=== PATIENT | male | born 1975 | race Two or more races ===

== ENCOUNTER 2017-11-11 11:46 | Emergency (ER) | payer OTHER ==
[~2017-11-11] VITALS: Ht 180.3 cm; Wt 104.3 kg
[~2017-11-11 11:46] MED LIST: ALBU90OI61 INH; ASPI81CH PO; CIPR500 PO; CODGUAEL PO; DEXT30SU PO; HYDACE5 PO; HYDCHL25 PO; LISI10 PO; LISI5 PO; METF500 PO; MONDOXYNE NL100 MG PO; NAPR500 PO; NEBI5 PO; NITR.4SL SL; Norco 5-325 Ta1 EACH PO; OXYACE5T PO; ROSU5 PO
[2017-11-11] MEDS ORDERED: METO25ER PO (12:35)
== END 2017-11-11 13:00 | disposition home or self-care (01) ==
LOC: ER 11:46
DX: S60.221A Contusion of right hand, initial encounter (principal); J45.909 Unspecified asthma, uncomplicated; I10 Essential (primary) hypertension; R73.03 Prediabetes; Z79.899 Other long term (current) drug therapy; Z79.84 Long term (current) use of oral hypoglycemic drugs; W01.0XXA Fall on same level from slipping, tripping and stumbling without subsequent striking against object, initial encounter; Y92.000 Kitchen of unspecified non-institutional (private) residence as the place of occurrence of the external cause
CPT/HCPCS: 73130; 99283

== ENCOUNTER 2020-04-18 15:56 | Emergency (ER) | payer OTHER ==
[~2020-04-18] VITALS: Ht 177.8 cm; Wt 103.0 kg
[~2020-04-18 15:56] MED LIST changes: +ACTOS30 MG PO; +CEPH500 PO; +CLIN300 PO; +GLIMEPIRIDE4 MG PO; +IBUP600 PO; +Inderal 20 mg T20 MG PO; +METO25ER PO; +METO50ER PO; +SULTRIDS PO; +VISBIOME PROBIOTIC PO
[2020-04-18] MEDS ORDERED: Cleocin HCl300 MG PO (16:15)
[2020-04-18] MEDS ORDERED: Norco 10-325 T1 EACH PO (16:15)
[2020-04-20] MEDS ORDERED: Bactrim Ds Tab1 EACH PO (20:58)
== END 2020-04-18 16:22 | disposition home or self-care (01) ==
LOC: ER 15:56
DX: L04.2 Acute lymphadenitis of upper limb (principal); I10 Essential (primary) hypertension; J45.909 Unspecified asthma, uncomplicated; Z79.84 Long term (current) use of oral hypoglycemic drugs; Z87.2 Personal history of diseases of the skin and subcutaneous tissue; Z79.899 Other long term (current) drug therapy
CPT/HCPCS: 99283

== ENCOUNTER → 2021-03-13 | Outpatient (CLI) | payer OTHER ==
[~2021-03-13] MED LIST changes: +Bactrim Ds Tab1 EACH PO; +Cipro500 MG PO; +Cleocin HCl300 MG PO; +FLAGYL500 M2 PO; +Norco 10-325 T1 EACH PO
[2021-03-13 14:13] LABS: BASOPHILS ABSOLUTE AUTO 0.02 K/mm3 (0.00-0.23); BASOPHILS PERCENT AUTO 0 % (0-2); EOSINOPHILS ABSOLUTE AUTO 0.05 K/mm3 (0.00-0.68); EOSINOPHILS PERCENT AUTO 1 % (0-6); Hematocrit 43.9 % (37.0-53.0); Hemoglobin 15.4 g/dL (13.5-17.5); IMMATURE GRAN ABSOLUTE AUTO 0.04 K/mm3 (0.00-0.10); IMMATURE GRAN PERCENT AUTO 1 % (0-1); LYMPHOCYTES ABSOLUTE AUTO 2.01 K/mm3 (0.84-5.20); LYMPHOCYTES PERCENT AUTO 34 % (21-46); MONOCYTES ABSOLUTE AUTO 0.51 K/mm3 (0.16-1.47); MONOCYTES PERCENT AUTO 9 % (4-13); Mean Corpuscular HGB 32.8 pg (26.0-34.0); Mean Corpuscular HGB Conc 35.1 g/dL (31.5-36.5); Mean Corpuscular Volume 94 fL (80-100); Mean Platelet Volume 8.6 fL (9.1-12.4); NEUTROPHILS ABSOLUTE AUTO 3.32 K/mm3 (1.96-9.15); NEUTROPHILS PERCENT AUTO 56 % (41-73); Platelet Count 273 K/mm3 (150-400); RDW Coefficient Variation 13.3 % (11.7-14.2); RDW Standard Deviation 45.9 fL (35.1-46.3); Red Blood Cell Count 4.69 M/mm3 (4.30-5.90); White Blood Cell Count 5.95 K/mm3 (4.00-11.30)
[2021-03-13 14:25] LABS: Alanine Aminotransfer (ALT/SGP 37 U/L (12-78); Alk Phos 70 U/L (40-126); Anion Gap 11 mmol/L (6-16); Aspartate Aminotrans (AST/SGOT 12 U/L (12-37); Bilirubin, Total 0.5 mg/dL (0.1-1.0); Blood Urea Nitrogen 11 mg/dL (8-24); CO2, Blood 26 mmol/L (21-32); Calcium, Blood 8.4 mg/dL (8.5-10.1); Chloride, Blood 99 mmol/L (98-108); Creatinine, Blood 0.92 mg/dL (0.60-1.20); Globulin, Blood 4.1 g/dL (2.2-4.0); Glomerular Filtration Rate >60 (60-); Glucose, Blood 191 mg/dL (70-99); Potassium, Blood 4.4 mmol/L (3.5-5.5); Sodium, Blood 136 mmol/L (136-145); Total Protein, Blood 8.1 g/dL (6.4-8.2)
== END | disposition home or self-care (01) ==
LOC: LAB SHORT 14:09 → LAB 14:09
PROVIDERS: General Practice
DX: R10.9 Unspecified abdominal pain (principal)
CPT/HCPCS: 80053; 85025

== ENCOUNTER 2021-08-30 16:13 | Emergency (ER) | payer OTHER ==
[~2021-08-30] VITALS: Ht 182.9 cm; Wt 90.7 kg
[2021-12-04] MEDS ORDERED: XARELTO PO (17:11)
== END 2021-08-30 16:45 | disposition home or self-care (01) ==
LOC: ER 16:13
DX: U07.1 COVID-19 (principal); I10 Essential (primary) hypertension; J45.909 Unspecified asthma, uncomplicated; R73.03 Prediabetes; Z79.84 Long term (current) use of oral hypoglycemic drugs; Z79.899 Other long term (current) drug therapy
CPT/HCPCS: 99283

== ENCOUNTER 2022-09-13 12:54 | Emergency (ER) | payer OTHER ==
[~2022-09-13] VITALS: Ht 177.8 cm; Wt 104.3 kg
[~2022-09-13 12:54] MED LIST changes: +XARELTO PO
[2022-09-13] MEDS ORDERED: CARB200 PO (15:58)
== END 2022-09-13 16:15 | disposition home or self-care (01) ==
LOC: ER 12:54
DX: G50.0 Trigeminal neuralgia (principal); I10 Essential (primary) hypertension; E11.9 Type 2 diabetes mellitus without complications; J45.909 Unspecified asthma, uncomplicated; Z79.899 Other long term (current) drug therapy; Z79.84 Long term (current) use of oral hypoglycemic drugs
CPT/HCPCS: A9270

== ENCOUNTER 2023-06-08 10:33 | Emergency (ER) | payer OTHER ==
[~2023-06-08] VITALS: Ht 177.8 cm; Wt 99.8 kg
[~2023-06-08 10:33] MED LIST changes: +CARB200 PO
[2023-06-08] MEDS ORDERED: Ventolin/Prove6.7 GM INH (10:57)
[2023-06-08] MEDS ORDERED: Voltaren100 GM TOP (11:16)
[2023-06-08] MEDS ORDERED: LIDO700A20 TOP (11:16)
[2023-06-08 11:26] VITALS: BP 156/78
== END 2023-06-08 11:27 | disposition home or self-care (01) ==
LOC: ER 10:33
DX: G89.29 Other chronic pain (principal); M54.50 Low back pain, unspecified; M54.6 Pain in thoracic spine; I10 Essential (primary) hypertension; J45.909 Unspecified asthma, uncomplicated
CPT/HCPCS: 99283; A9270

== ENCOUNTER 2024-02-18 09:01 | Emergency (ER) | payer OTHER ==
[~2024-02-18] VITALS: Ht 177.8 cm; Wt 104.3 kg
[~2024-02-18 09:01] MED LIST changes: +LIDO700A20 TOP; +Ventolin/Prove6.7 GM INH; +Voltaren100 GM TOP
[2024-02-18] MEDS ORDERED: HYDROCODONE-AC1 EAC7 PO (09:28)
[2024-02-18] MEDS ORDERED: Cyclobenzaprine5 MG PO (09:29)
[2024-02-18] MEDS ORDERED: INSULIN GL100 UNIT/2 SC (09:30)
[2024-02-18] MEDS ORDERED: CEPH500 PO (09:56)
[2024-02-18] MEDS ORDERED: Bactrim Ds Tab1 EACH PO (09:56)
[2024-02-18 10:21] VITALS: BP 166/112
== END 2024-02-18 10:22 | disposition home or self-care (01) ==
LOC: ER 09:01
DX: L02.31 Cutaneous abscess of buttock (principal); I10 Essential (primary) hypertension; J45.909 Unspecified asthma, uncomplicated; E11.9 Type 2 diabetes mellitus without complications; Z79.84 Long term (current) use of oral hypoglycemic drugs; Z79.899 Other long term (current) drug therapy; Z88.8 Allergy status to other drugs, medicaments and biological substances
CPT/HCPCS: 10060; 99283-25

== ENCOUNTER → 2024-02-21 | Outpatient (CLI) | payer OTHER ==
[~2024-02-21] MED LIST changes: +Cyclobenzaprine5 MG PO; +HYDROCODONE-AC1 EAC7 PO; +INSULIN GL100 UNIT/2 SC
== END ==
LOC: LAB SHORT 15:44 → LAB 15:44
DX: L05.01 Pilonidal cyst with abscess (principal)
CPT/HCPCS: 87070; 87075; 87077; 87186; 87205